=== PATIENT | male | born 1975 | race American Indian/Alaskan Native ===

== ENCOUNTER 2016-12-18 19:10 | Emergency (ER) | payer MEDICAID ==
[2016-12-18 19:10] VITALS: BMI 23.1
[2016-12-18 19:28] VITALS: BP 154/93; PULSE 69; RESP 16; TEMP 98.2; O2SAT 100
--- NOTE | 2016-12-18 20:22 | ED PDOC ---
HPI: Headache Time Seen by Provider: 12/18/16 19:55 Chief Complaint (Nursing): Headache Chief Complaint (Provider): Headache History Per: Patient History/Exam Limitations: no limitations Onset/Duration Of Symptoms: Mins (x5 minutes) Current Symptoms Are (Timing): Still Present Additional Complaint(s): 41 y/o male presents to the emergency department with a complaint of a headache x5 minutes. Reports experiencing similar headache in the past and treating with Tylenol. Denies any further medical complaints. Past Medical History Reviewed: Historical Data, Nursing Documentation, Vital Signs Vital Signs: Last Vital Signs Temp 98.2 F 12/18/16 19:26 Pulse 69 12/18/16 19:26 Resp 16 12/18/16 19:26 BP 154/93 H 12/18/16 19:26 Pulse Ox 100 12/18/16 19:26 - Medical History PMH: Bipolar Disorder (per old chart but pt denies), Diabetes Denies: Hepatitis, HIV, HTN, Chronic Kidney Disease, Seizures, Sexually Transmitted Disease - Surgical History Surgical History: Appendectomy - Family History Family History: States: Unknown Family Hx - Social History Current smoker - smoking cessation education provided: Yes (Light Smoker < 10 Cigarettes Daily) Alcohol: Social Drugs: Other (PCP/Heroin) - Immunization History Hx Tetanus Toxoid Vaccination: No Hx Influenza Vaccination: No Hx Pneumococcal Vaccination: No - Home Medications Home Medications: Ambulatory Orders Medication Instructions Recorded Ibuprofen [Motrin] 600 mg PO Q6 #20 tab 07/08/16 Ibuprofen [Motrin] 1 tab PO TID PRN #20 tab 07/21/16 - Allergies Allergies/Adverse Reactions: Allergies Allergy/AdvReac Type Severity Reaction Status Date / Time risperidone [From Risperdal] Allergy FATIGUE Verified 12/18/16 19:28 Review of Systems ROS Statement: Except As Marked, All Systems Reviewed And Found Negative Neurological: Negative for: Headache Physical Exam - Reviewed Nursing Documentation Reviewed: Yes Vital Signs Reviewed: Yes - Physical Exam Appears: Positive for: Well, Non-toxic, No Acute Distress Head Exam: Positive for: ATRAUMATIC, NORMAL INSPECTION, NORMOCEPHALIC Skin: Positive for: Normal Color, Warm, Dry Neck: Positive for: Normal, Supple Neurologic/Psych: Positive for: Alert, Oriented - ECG O2 Sat by Pulse Oximetry: 100 (RA) Pulse Ox Interpretation: Normal Medical Decision Making Medical Decision Making: Time: 19:55 Initial Impression: Headache Initial Plan: --Tylenol 650 mg PO --Reevaluation Time: 20:17 Upon provider reevaluation patient is feeling better, is medically stable, and requires no further treatment in the ED at this time. Patient will be discharged home. Counseling was provided and all questions were answered regarding diagnosis and need for follow up with referred clinics. There is agreement to discharge plan. Return if symptoms persist or worsen. Clinical Impression: Headache Scribe Attestation: Documented by Silvia Mckeon, acting as a scribe for Meg Collins. Provider Scribe Attestation: All medical record entries made by the Scribe were at my direction and personally dictated by me. I have reviewed the chart and agree that the record accurately reflects my personal performance of the history, physical exam, medical decision making, and the department course for this patient. I have also personally directed, reviewed, and agree with the discharge instructions and disposition. Disposition - Clinical Impression Clinical Impression: Headache - Patient ED Disposition Is Patient to be Admitted: No Counseled Patient/Family Regarding: Diagnosis, Need For Followup - Disposition Referrals: [facility] [Outside] Disposition: Routine/Home Disposition Time: 20:17 Condition: GOOD Instructions: Acute Headache (ED)
== END 2016-12-18 20:46 | disposition home or self-care (01) ==
LOC: H.ER 19:10
DX: R51 Headache (principal); E11.9 Type 2 diabetes mellitus without complications; F31.9 Bipolar disorder, unspecified

== ENCOUNTER 2016-12-25 13:56 | Emergency (ER) | payer MEDICAID ==
[2016-12-25 13:56] VITALS: BMI 23.7
[2016-12-25 14:02] VITALS: BP 145/78; PULSE 68; RESP 18; TEMP 98; O2SAT 99
--- NOTE | 2016-12-25 14:10 | ED PDOC ---
HPI: Headache Time Seen by Provider: 12/25/16 14:07 Chief Complaint (Nursing): Headache Chief Complaint (Provider): headache History Per: Patient (41 y/o male undomiciled here for treatment of mild left frontal headache noted while walking prior to ED arrival. States has h/o headaches in past lasting few minutes. Denies any vomiting/photophobia/fevers/ uri/cough. Patient does not have any access to medication for headache.) Past Medical History Reviewed: Historical Data, Nursing Documentation, Vital Signs Vital Signs: Last Vital Signs Temp 98 F 12/25/16 13:59 Pulse 68 12/25/16 13:59 Resp 18 12/25/16 13:59 BP 145/78 12/25/16 13:59 Pulse Ox 99 12/25/16 13:59 - Medical History PMH: Bipolar Disorder (per old chart but pt denies), Diabetes Denies: Hepatitis, HIV, HTN, Chronic Kidney Disease, Seizures, Sexually Transmitted Disease - Surgical History Surgical History: Appendectomy - Family History Family History: States: Unknown Family Hx - Immunization History Hx Tetanus Toxoid Vaccination: No Hx Influenza Vaccination: No Hx Pneumococcal Vaccination: No - Home Medications Home Medications: Ambulatory Orders Medication Instructions Recorded Ibuprofen [Motrin] 600 mg PO Q6 #20 tab 07/08/16 Ibuprofen [Motrin] 1 tab PO TID PRN #20 tab 07/21/16 Ibuprofen [Motrin Tab] 600 mg PO Q6 #20 tab 12/21/16 - Allergies Allergies/Adverse Reactions: Allergies Allergy/AdvReac Type Severity Reaction Status Date / Time risperidone [From Risperdal] Allergy FATIGUE Verified 12/18/16 19:28 Review of Systems ROS Statement: Except As Marked, All Systems Reviewed And Found Negative Physical Exam - Reviewed Nursing Documentation Reviewed: Yes Vital Signs Reviewed: Yes - Physical Exam Appears: Positive for: Well, Non-toxic, No Acute Distress Head Exam: Positive for: ATRAUMATIC, NORMAL INSPECTION, NORMOCEPHALIC Skin: Positive for: Normal Color, Warm, DRY Eye Exam: Positive for: EOMI, Normal appearance, PERRL ENT: Positive for: Normal ENT Inspection Neck: Positive for: Normal, Painless ROM Cardiovascular/Chest: Positive for: Regular Rate, Rhythm Respiratory: Positive for: CNT, Normal Breath Sounds Gastrointestinal/Abdominal: Positive for: Normal Exam, Bowel Sounds, Soft Back: Positive for: Normal Inspection Extremity: Positive for: Normal ROM Neurologic/Psych: Positive for: Alert, Oriented - ECG O2 Sat by Pulse Oximetry: 99 - Progress ED Course And Treament: Acetaminophen 650mg x 1 dose OLD ED records reviewed. Patient has many visits for back pain. Currently appears in no discomfort in ED. Disposition - Clinical Impression Clinical Impression: Headache - Patient ED Disposition Is Patient to be Admitted: No - Disposition Referrals: [facility] [Outside] Disposition: Routine/Home Disposition Time: 14:10 Condition: FAIR Instructions: Tension Headache (ED)
== END 2016-12-25 14:47 | disposition home or self-care (01) ==
LOC: H.ER 13:56
DX: R51 Headache (principal); E11.9 Type 2 diabetes mellitus without complications; F31.9 Bipolar disorder, unspecified

== ENCOUNTER 2017-04-19 10:58 | Emergency (ER) | payer MEDICAID ==
[2017-04-19 10:58] VITALS: BMI 23.7
--- NOTE | 2017-04-19 12:13 | ED PDOC ---
HPI: General Adult Time Seen by Provider: 04/19/17 11:18 Chief Complaint (Nursing): Medical Clearance Chief Complaint (Provider): medical eval History Per: Patient History/Exam Limitations: no limitations Additional Complaint(s): 42yo M in ED for eval of lesions to body-pt is homeless needs clearance for return. Pt with ?bed bug infestation. Past Medical History Reviewed: Historical Data, Nursing Documentation, Vital Signs Vital Signs: Last Vital Signs Temp 98 F 04/19/17 11:25 Pulse 88 04/19/17 11:25 Resp 16 04/19/17 11:25 BP 165/111 H 04/19/17 11:25 Pulse Ox 98 04/19/17 11:25 - Medical History PMH: Bipolar Disorder (per old chart but pt denies), Diabetes Denies: Hepatitis, HIV, HTN, Chronic Kidney Disease, Seizures, Sexually Transmitted Disease - Surgical History Surgical History: Appendectomy - Family History Family History: States: Unknown Family Hx - Immunization History Hx Tetanus Toxoid Vaccination: No Hx Influenza Vaccination: No Hx Pneumococcal Vaccination: No - Home Medications Home Medications: Ambulatory Orders Medication Instructions Recorded Ibuprofen [Motrin] 600 mg PO Q6 #20 tab 07/08/16 Ibuprofen [Motrin] 1 tab PO TID PRN #20 tab 07/21/16 Ibuprofen [Motrin Tab] 600 mg PO Q6 #20 tab 12/21/16 - Allergies Allergies/Adverse Reactions: Allergies Allergy/AdvReac Type Severity Reaction Status Date / Time risperidone [From Risperdal] Allergy FATIGUE Verified 12/18/16 19:28 - ECG O2 Sat by Pulse Oximetry: 98 Disposition - Disposition
--- NOTE | 2017-04-19 12:17 | ED PDOC ---
HPI: General Adult Time Seen by Provider: 04/19/17 11:18 Chief Complaint (Nursing): Medical Clearance Chief Complaint (Provider): medical eval History Per: Patient History/Exam Limitations: no limitations Additional Complaint(s): 42yo M inEd for eval of ? bed bug infestation.needs clearance for return to homeless alf. no fever no chills no nausea or vomiting. denies abd pain. , Past Medical History Reviewed: Historical Data, Nursing Documentation, Vital Signs Vital Signs: Last Vital Signs Temp 98 F 04/19/17 11:25 Pulse 88 04/19/17 11:25 Resp 16 04/19/17 11:25 BP 165/111 H 04/19/17 11:25 Pulse Ox 98 04/19/17 12:26 - Medical History PMH: Bipolar Disorder (per old chart but pt denies), Diabetes Denies: Hepatitis, HIV, HTN, Chronic Kidney Disease, Seizures, Sexually Transmitted Disease - Surgical History Surgical History: Appendectomy - Family History Family History: States: Unknown Family Hx - Immunization History Hx Tetanus Toxoid Vaccination: No Hx Influenza Vaccination: No Hx Pneumococcal Vaccination: No - Home Medications Home Medications: Ambulatory Orders Medication Instructions Recorded Ibuprofen [Motrin] 600 mg PO Q6 #20 tab 07/08/16 Ibuprofen [Motrin] 1 tab PO TID PRN #20 tab 07/21/16 Ibuprofen [Motrin Tab] 600 mg PO Q6 #20 tab 12/21/16 - Allergies Allergies/Adverse Reactions: Allergies Allergy/AdvReac Type Severity Reaction Status Date / Time risperidone [From Risperdal] Allergy FATIGUE Verified 12/18/16 19:28 Review of Systems ROS Statement: Except As Marked, All Systems Reviewed And Found Negative Skin: Positive for: Rash, Lesions Physical Exam - Reviewed Nursing Documentation Reviewed: Yes Vital Signs Reviewed: Yes - Physical Exam Appears: Positive for: Well, Non-toxic, No Acute Distress Head Exam: Positive for: ATRAUMATIC, NORMAL INSPECTION, NORMOCEPHALIC Skin: Positive for: Rash (lesions noted diffuse on body some lesions noted on palm of hands. none noted on soles of feet. lesions noted to groin area as well. no sore noted to penis. no swelling noted. lesions are excoriate and hyperpigmented lesions. ) Eye Exam: Positive for: EOMI, Normal appearance, PERRL ENT: Positive for: Normal ENT Inspection Neck: Positive for: Normal, Painless ROM Cardiovascular/Chest: Positive for: Regular Rate, Rhythm Respiratory: Positive for: CNT, Normal Breath Sounds Gastrointestinal/Abdominal: Positive for: Normal Exam, Bowel Sounds, Soft Back: Positive for: Normal Inspection Extremity: Positive for: Normal ROM Neurologic/Psych: Positive for: Alert, Oriented - ECG O2 Sat by Pulse Oximetry: 98 - Progress ED Course And Treament: pt was placed in decontamination and cleaned. provided clothing. concerns for syphilis. will test RPR but pt does admit he is sexually active men /women and without condom use. will treat with PCN, empirically considering SHx. Orders Category Date Time Status CHLAMYDIA/GC RNA,TMA Stat Lab 04/19/17 12:11 Uncollected Penicillin G Benzathine [Bicillin L-A inj] Med 04/19/17 12:24 Stat 2,400,000 units IM STAT STA Vital Signs ONCE Pt Care 04/19/17 12:14 Ordered RAPID PLASMA REAGIN Stat Serology 04/19/17 12:11 Uncollected Medical Decision Making Medical Decision Making: pt will be discharged Disposition - Clinical Impression Clinical Impression: Infestation by bed bug - Patient ED Disposition Is Patient to be Admitted: No Counseled Patient/Family Regarding: Need For Followup - Disposition Disposition: Routine/Home Disposition Time: 13:28 Condition: STABLE Instructions: Bed Bugs (ED) Forms: [employer] (Cook Islander)
[2017-04-19] MEDS ORDERED: Penicillin G Benzathine 2.4 Mill Unit/4 ml Syr IM STA (12:24)
[2017-04-19 13:40] VITALS: BP 151/98; PULSE 86; RESP 14; TEMP 98.1; O2SAT 99
== END 2017-04-19 15:26 | disposition home or self-care (01) ==
LOC: H.ER 10:58
DX: B88.8 Other specified infestations (principal); E11.9 Type 2 diabetes mellitus without complications; F31.9 Bipolar disorder, unspecified
CPT/HCPCS: 86592; 96372; 99281; J0561

== ENCOUNTER 2017-05-05 13:44 | Emergency (ER) | payer MEDICAID ==
[2017-05-05 13:45] VITALS: BMI 23.7
[2017-05-05 13:59] VITALS: PULSE 82; RESP 20; TEMP 98.3; O2SAT 98
--- NOTE | 2017-05-05 14:35 | ED PDOC ---
HPI: Headache Time Seen by Provider: 05/05/17 14:07 Chief Complaint (Nursing): Headache Chief Complaint (Provider): headache History Per: Patient History/Exam Limitations: no limitations Onset/Duration Of Symptoms: Mins (15 minutes ago), Sudden Onset Current Symptoms Are (Timing): Still Present Severity: Mild Quality: "Pain" Associated Symptoms: denies: Photophobia, Blurred Vision, Nausea, Vomiting, Extremity Weakness Additional Complaint(s): Similar to previous episodes Denies fever or chills. Denies blurry vision or weakness. Denies trauma. Reports runny nose and feels like he's coming down with a cold. Pt seen in this ER previously for same. He is homeless. Denies drug or alcohol use. Past Medical History Reviewed: Historical Data, Nursing Documentation, Vital Signs Vital Signs: Last Vital Signs Temp 98.3 F 05/05/17 13:57 Pulse 82 05/05/17 13:57 Resp 20 05/05/17 13:57 BP 164/94 H 05/05/17 13:57 Pulse Ox 98 05/05/17 13:57 - Medical History PMH: Bipolar Disorder (per old chart but pt denies), Diabetes Denies: Hepatitis, HIV, HTN, Chronic Kidney Disease, Seizures, Sexually Transmitted Disease - Surgical History Surgical History: Appendectomy - Family History Family History: States: Unknown Family Hx - Social History Current smoker - smoking cessation education provided: Yes - Immunization History Hx Tetanus Toxoid Vaccination: No Hx Influenza Vaccination: No Hx Pneumococcal Vaccination: No - Home Medications Home Medications: Ambulatory Orders Medication Instructions Recorded Ibuprofen [Motrin] 600 mg PO Q6 #20 tab 07/08/16 Ibuprofen [Motrin] 1 tab PO TID PRN #20 tab 07/21/16 Ibuprofen [Motrin Tab] 600 mg PO Q6 #20 tab 12/21/16 - Allergies Allergies/Adverse Reactions: Allergies Allergy/AdvReac Type Severity Reaction Status Date / Time risperidone [From Risperdal] Allergy FATIGUE Verified 05/05/17 13:57 Review of Systems ROS Statement: Except As Marked, All Systems Reviewed And Found Negative (and as per HPI) Constitutional: Negative for: Fever, Chills, Weakness, Malaise ENT: Positive for: Nose Discharge Musculoskeletal: Negative for: Neck Pain Neurological: Positive for: Headache, Dizziness. Negative for: Weakness, Numbness, Altered Mental Status Physical Exam - Reviewed Nursing Documentation Reviewed: Yes Vital Signs Reviewed: Yes - Physical Exam Appears: Positive for: Well, Non-toxic, No Acute Distress Head Exam: Positive for: ATRAUMATIC, NORMOCEPHALIC Skin: Positive for: Warm, Dry Eye Exam: Positive for: EOMI, PERRL ENT: Negative for: Pharyngeal Erythema, Tonsillar Exudate Neck: Positive for: Painless ROM, Supple Cardiovascular/Chest: Positive for: Regular Rate, Rhythm, Chest Non Tender. Negative for: Murmur Respiratory: Positive for: Normal Breath Sounds. Negative for: Wheezing Gastrointestinal/Abdominal: Positive for: Soft. Negative for: Tenderness Back: Positive for: Normal Inspection. Negative for: Decreased ROM Extremity: Positive for: Normal ROM. Negative for: Deformity Lymphatic: Negative for: Adenopathy Neurologic/Psych: Positive for: Alert, suction plate carrier cleaner II-XII (intact), Mood/Affect (flat), Gait (steady). Negative for: Motor/Sensory Deficits - ECG O2 Sat by Pulse Oximetry: 98 Disposition - Clinical Impression Clinical Impression: Homeless, Headache Counseled Patient/Family Regarding: Studies Performed, Diagnosis, Need For Followup - Disposition Referrals: [facility] [Outside] - 05/07/17 Disposition: Routine/Home Disposition Time: 14:00 Condition: GOOD Instructions: Acute Headache (ED)
[2017-05-05 14:48] VITALS: BP 150/76
== END 2017-05-05 14:47 | disposition home or self-care (01) ==
LOC: H.ER 13:44
DX: R51 Headache (principal)

== ENCOUNTER 2017-06-12 20:05 | Emergency (ER) | payer MEDICAID ==
[2017-06-12 20:05] VITALS: BMI 23.7
[2017-06-12 21:15] VITALS: BP 187/91; PULSE 94; RESP 16; TEMP 98.2; O2SAT 98
--- NOTE | 2017-06-12 21:40 | ED PDOC ---
HPI: Back Time Seen by Provider: 06/12/17 21:28 Chief Complaint (Nursing): Back Pain Chief Complaint (Provider): Back Pain History Per: Patient History/Exam Limitations: no limitations Onset/Duration Of Symptoms: Days (x1) Current Symptoms Are (Timing): Still Present Additional Complaint(s): 42 y/o male presents to the ER complaining of lower back pain since this afternoon. He denies having similar pain in the past. There was no injury or fall. Pain is localized to the left lower back. Denies any numbness, tingling, weakness, incontinence, or dysuria. PMD: None Past Medical History Reviewed: Historical Data, Nursing Documentation, Vital Signs Vital Signs: Last Vital Signs Temp 98.2 F 06/12/17 21:12 Pulse 94 H 06/12/17 21:12 Resp 16 06/12/17 21:12 BP 187/91 H 06/12/17 21:12 Pulse Ox 98 06/12/17 21:12 - Medical History PMH: Bipolar Disorder (per old chart but pt denies), Diabetes Denies: Hepatitis, HIV, HTN, Chronic Kidney Disease, Seizures, Sexually Transmitted Disease - Surgical History Surgical History: Appendectomy - Family History Family History: States: Unknown Family Hx - Immunization History Hx Tetanus Toxoid Vaccination: No Hx Influenza Vaccination: No Hx Pneumococcal Vaccination: No - Home Medications Home Medications: Ambulatory Orders Medication Instructions Recorded Ibuprofen [Motrin] 600 mg PO Q6 #20 tab 07/08/16 Ibuprofen [Motrin] 1 tab PO TID PRN #20 tab 07/21/16 Ibuprofen [Motrin Tab] 600 mg PO Q6 #20 tab 12/21/16 Naproxen [Naprosyn] 500 mg PO Q12 PRN #14 tablet 06/12/17 - Allergies Allergies/Adverse Reactions: Allergies Allergy/AdvReac Type Severity Reaction Status Date / Time risperidone [From Risperdal] Allergy FATIGUE Verified 06/12/17 21:11 Review of Systems ROS Statement: Except As Marked, All Systems Reviewed And Found Negative Genitourinary Male: Negative for: Dysuria, Incontinence Musculoskeletal: Positive for: Back Pain (left lower) Neurological: Negative for: Weakness, Numbness (and tingling) Physical Exam - Reviewed Nursing Documentation Reviewed: Yes Vital Signs Reviewed: Yes - Physical Exam Appears: Positive for: Non-toxic, No Acute Distress Head Exam: Positive for: ATRAUMATIC, NORMOCEPHALIC Skin: Positive for: Normal Color, Warm, Dry. Negative for: Rash Eye Exam: Positive for: EOMI, Normal appearance, PERRL Neck: Positive for: Normal, Painless ROM Cardiovascular/Chest: Positive for: Regular Rate, Rhythm. Negative for: Murmur Respiratory: Positive for: Normal Breath Sounds. Negative for: Accessory Muscle Use, Respiratory Distress Back: Positive for: Other (Left paralumbar tenderness). Negative for: Vertebral Tenderness Extremity: Positive for: Normal ROM. Negative for: Pedal Edema, Deformity Neurologic/Psych: Positive for: Alert, Oriented - ECG O2 Sat by Pulse Oximetry: 98 (RA) Pulse Ox Interpretation: Normal Medical Decision Making Medical Decision Making: Time: 21:39 Initial Impression: Back pain Initial Plan: * Motrin 600 mg PO Patient is medically stable for discharge home. Scribe Attestation: Documented by Ana Rebollar, acting as a scribe for Gretel Peng PA-C Provider Scribe Attestation: All medical record entries made by the Scribe were at my direction and personally dictated by me. I have reviewed the chart and agree that the record accurately reflects my personal performance of the history, physical exam, medical decision making, and the department course for this patient. I have also personally directed, reviewed, and agree with the discharge instructions and disposition. Disposition - Clinical Impression Clinical Impression: Low back pain - Patient ED Disposition Is Patient to be Admitted: No - Disposition Referrals: [facility] [Outside] Disposition: Routine/Home Disposition Time: 21:39 Condition: FAIR Prescriptions: Naproxen [Naprosyn] 500 mg PO Q12 PRN #14 tablet PRN Reason: Pain, Moderate (4-7) Instructions: Acute Low Back Pain (DC) Forms: [employer] (Thai)
== END 2017-06-12 22:04 | disposition home or self-care (01) ==
LOC: H.ER 20:05
DX: M54.5 Low back pain (principal); E11.9 Type 2 diabetes mellitus without complications; F31.9 Bipolar disorder, unspecified

== ENCOUNTER 2017-07-27 17:10 | Emergency (ER) | payer MEDICAID ==
[2017-07-27 18:18] VITALS: RESP 16
[2017-07-27 18:41] VITALS: BMI 25.7
--- NOTE | 2017-07-27 18:47 | ED PDOC ---
HPI: Back Time Seen by Provider: 07/27/17 18:36 Chief Complaint (Provider): back pain History Per: Patient History/Exam Limitations: no limitations Onset/Duration Of Symptoms: Days (today) Additional Complaint(s): Back pain across lower. No numbness, tingles, weakness, dizziness, incontinence , constipation. No new fall or injury. No abd pain. Denies suicidal or homicidal ideation. No neck pain. Denies drugs or etoh. Found to be full of bugs (lice) when pt. signed in. Past Medical History Reviewed: Nursing Documentation, Vital Signs Vital Signs: Last Vital Signs Temp 97.0 F L 07/27/17 18:17 Pulse 92 H 07/27/17 18:17 Resp 16 07/27/17 18:17 BP 170/98 H 07/27/17 18:17 Pulse Ox 100 07/27/17 18:17 - Medical History PMH: Back Problems, Bipolar Disorder (per old chart but pt denies), Diabetes Denies: Hepatitis, HIV, HTN, Chronic Kidney Disease, Seizures, Sexually Transmitted Disease - Surgical History Surgical History: Appendectomy - Family History Family History: States: Unknown Family Hx - Immunization History Hx Tetanus Toxoid Vaccination: No Hx Influenza Vaccination: No Hx Pneumococcal Vaccination: No - Home Medications Home Medications: Ambulatory Orders Medication Instructions Recorded Unobtainable 07/04/17 - Allergies Allergies/Adverse Reactions: Allergies Allergy/AdvReac Type Severity Reaction Status Date / Time risperidone [From Risperdal] Allergy FATIGUE Verified 07/04/17 11:48 Review of Systems ROS Statement: Except As Marked, All Systems Reviewed And Found Negative Musculoskeletal: Positive for: Back Pain Physical Exam - Reviewed Nursing Documentation Reviewed: Yes Vital Signs Reviewed: Yes - Physical Exam Appears: Positive for: Non-toxic, No Acute Distress Head Exam: Positive for: ATRAUMATIC, NORMAL INSPECTION, NORMOCEPHALIC Skin: Positive for: Normal Color, Warm, DRY Eye Exam: Positive for: EOMI, Normal appearance, PERRL ENT: Positive for: Normal ENT Inspection Neck: Positive for: Normal, Painless ROM Cardiovascular/Chest: Positive for: Regular Rate, Rhythm Respiratory: Positive for: CNT, Normal Breath Sounds Gastrointestinal/Abdominal: Positive for: Normal Exam, Bowel Sounds, Soft. Negative for: Tenderness Back: Negative for: L CVA Tenderness, R CVA Tenderness Extremity: Positive for: Normal ROM. Negative for: Tenderness, Pedal Edema Neurologic/Psych: Positive for: Alert, Oriented. Negative for: Motor/Sensory Deficits - ECG O2 Sat by Pulse Oximetry: 100 - Progress ED Course And Treament: 1850: Pt. with visits for back pain and psych. Pt. not good historian. Complains of back pain and wants to talk to someone about his problems. Has psych hx. Dr. Gatica to take over care. Disposition - Clinical Impression Clinical Impression: Back pain - Patient ED Disposition Is Patient to be Admitted: Transfer of Care - Disposition Disposition: Transfer of Care Disposition Time: 18:49 Condition: FAIR
--- NOTE | 2017-07-27 19:11 | ED PDOC ---
- Laboratory Results Result Diagrams: 07/27/17 20:18 07/27/17 20:18 - ECG O2 Sat by Pulse Oximetry: 100 (RA) Pulse Ox Interpretation: Normal Medical Decision Making Medical Decision Making: Time: 19:00 --transfer of care endorsed to me pending labs and crisis evaluation. Scribe Attestation: Documented by Jennifer Obrien, acting as a scribe for Butch Gatica MD. Provider Scribe Attestation: All medical record entries made by the Scribe were at my direction and personally dictated by me. I have reviewed the chart and agree that the record accurately reflects my personal performance of the history, physical exam, medical decision making, and the department course for this patient. I have also personally directed, reviewed, and agree with the discharge instructions and disposition. Disposition Doctor Will See Patient In The: Office Counseled Patient/Family Regarding: Studies Performed, Diagnosis, Need For Followup - Clinical Impression Clinical Impression: Back pain, Anemia - POA Present On Arrival: None - Disposition Referrals: [facility] [Outside] Disposition: Routine/Home Disposition Time: 23:00 Condition: IMPROVED Instructions: Chronic Back Pain (ED)
[2017-07-27 20:15] VITALS: BP 140/78; PULSE 80; TEMP 97.6
[2017-07-27 20:29] LABS: BASO % 0.8 % (0.0-2.0); EOS # 0.6 K/uL (0.0-0.7); EOS % 13.6 % (0.0-4.0); HEMOGLOBIN 8.7 g/dL (12.0-18.0); LYMPH # 1.6 K/uL (1.0-4.3); LYMPH % 34.2 % (20.0-40.0); MEAN CELL VOLUME 65.1 fl (80.0-94.0); MEAN CORPUSCULAR HEMOGLOBIN 20.3 pg (27.0-31.0); MEAN CORPUSCULAR HGB CONC 31.2 g/dL (33.0-37.0); MONO # 0.6 K/uL (0.0-0.8); MONO % 13.7 % (0.0-10.0); NEUT # 1.8 K/uL (1.8-7.0); NEUT % 37.7 % (50.0-75.0); NRBC % 0.1 % (0.0-0.0); RBC 4.27 Mil/uL (4.40-5.90); RED CELL DISTRIBUTION WIDTH 19.8 % (11.5-14.5); WHITE BLOOD COUNT 4.6 K/uL (4.8-10.8)
[2017-07-27 20:34] LABS: ALB/GLOB RATIO 0.9 (1.0-2.1); ALBUMIN 3.8 g/dL (3.5-5.0); ALT/SGPT 32 U/L (21-72); AST/SGOT 27 U/L (17-59); BLOOD UREA NITROGEN 16 mg/dl (9-20); CALCIUM 9.3 mg/dL (8.4-10.2); GFR AFRICAN-AMERICAN > 60; GFR NON-AFRICAN AMERICAN > 60
[2017-07-28 01:01] VITALS: O2SAT 100
== END 2017-07-28 00:18 | disposition home or self-care (01) ==
LOC: H.ER 17:10
DX: M54.9 Dorsalgia, unspecified (principal); D64.9 Anemia, unspecified; E11.9 Type 2 diabetes mellitus without complications; F31.9 Bipolar disorder, unspecified

== ENCOUNTER 2017-08-03 14:07 | Emergency (ER) | payer MEDICAID ==
[2017-08-03 14:08] VITALS: BMI 25.7
[2017-08-03 15:44] VITALS: BP 159/92; PULSE 87; RESP 20; TEMP 98.8; O2SAT 100
--- NOTE | 2017-08-03 15:48 | ED PDOC ---
HPI: Headache Time Seen by Provider: 08/03/17 14:49 Chief Complaint (Nursing): Headache Chief Complaint (Provider): Headache History Per: Patient History/Exam Limitations: no limitations Onset/Duration Of Symptoms: Days (x1), Gradual Current Symptoms Are (Timing): Still Present Additional Complaint(s): 42 year old male who presents to the emergency department with a complaint of gradual onset of headache ongoing since this morning. Denied any fever, chills, nausea, vomiting, head trauma, loss of consciousness, visual changes or taking any medication for pain. Patient reported having a history of headaches for "35 years" and has been evaluated by doctors without imaging performed but advised to take Tylenol and Motrin for symptoms. PMD: none provided Past Medical History Reviewed: Historical Data, Nursing Documentation, Vital Signs Vital Signs: Last Vital Signs Temp 98.8 F 08/03/17 15:42 Pulse 87 08/03/17 15:42 Resp 20 08/03/17 15:42 BP 159/92 H 08/03/17 15:42 Pulse Ox 100 08/03/17 15:42 - Medical History PMH: Back Problems, Bipolar Disorder (per old chart but pt denies) Denies: Diabetes, Hepatitis, HIV, HTN, Chronic Kidney Disease, Seizures, Sexually Transmitted Disease - Surgical History Surgical History: Appendectomy - Family History Family History: States: Unknown Family Hx - Social History Current smoker - smoking cessation education provided: Yes Alcohol: > 2 Drinks/Day Drugs: Other (PCP/heroin) - Immunization History Hx Tetanus Toxoid Vaccination: No Hx Influenza Vaccination: No Hx Pneumococcal Vaccination: No - Home Medications Home Medications: Ambulatory Orders Medication Instructions Recorded Naproxen [Naprosyn] 500 mg PO BID PRN #10 tab 08/03/17 - Allergies Allergies/Adverse Reactions: Allergies Allergy/AdvReac Type Severity Reaction Status Date / Time risperidone [From Risperdal] Allergy FATIGUE Verified 07/04/17 11:48 Review of Systems ROS Statement: Except As Marked, All Systems Reviewed And Found Negative Constitutional: Negative for: Fever Eyes: Negative for: Vision Change Gastrointestinal: Negative for: Nausea, Vomiting Neurological: Positive for: Headache. Negative for: Other (LOC or trauma) Physical Exam - Reviewed Nursing Documentation Reviewed: Yes Vital Signs Reviewed: Yes - Physical Exam Appears: Positive for: Well, Non-toxic, No Acute Distress Head Exam: Positive for: ATRAUMATIC, NORMAL INSPECTION, NORMOCEPHALIC Eye Exam: Positive for: Normal appearance. Negative for: Periorbital swelling, Periorbital tenderness ENT: Positive for: Normal ENT Inspection, Pharynx Is (within normal limits). Negative for: Pharyngeal Erythema Cardiovascular/Chest: Positive for: Regular Rate, Rhythm, Chest Non Tender Respiratory: Positive for: Normal Breath Sounds. Negative for: Decreased Breath Sounds, Respiratory Distress Neurologic/Psych: Positive for: Alert (x3), Oriented - ECG O2 Sat by Pulse Oximetry: 100 (RA) Pulse Ox Interpretation: Normal Medical Decision Making Medical Decision Making: Initial Impression: Headache Initial Plan: * Naproxen 500mg PO Time: 1615 --Upon provider evaluation, patient is medically stable and requires no further treatment in the ED at this time. Patient will be discharged home with Rx for Naprosyn 500mg. Counseling was provided and all questions were answered regarding diagnosis and need for follow up with [facility]. There is agreement to discharge plan. Return if symptoms persist or worsen. Clinical Impression: Acute headache Scribe Attestation: Documented by Radha Carpio, acting as a scribe for Mauri Richard PA-C. Provider Scribe Attestation: All medical record entries made by the Scribe were at my direction and personally dictated by me. I have reviewed the chart and agree that the record accurately reflects my personal performance of the history, physical exam, medical decision making, and the department course for this patient. I have also personally directed, reviewed, and agree with the discharge instructions and disposition. Disposition - Clinical Impression Clinical Impression: Acute headache - Patient ED Disposition Is Patient to be Admitted: No Counseled Patient/Family Regarding: Diagnosis - Disposition Referrals: [facility] [Outside] Disposition: Routine/Home Disposition Time: 16:15 Condition: STABLE Prescriptions: Naproxen [Naprosyn] 500 mg PO BID PRN #10 tab PRN Reason: Pain Instructions: Acute Headache (ED) Forms: [employer] (Japanese) Print Language: CYPRIOT
[2017-08-03] MEDS ORDERED: Naproxen 500 MG TAB PO ONE ×2 (16:08→16:14)
== END 2017-08-03 17:08 | disposition home or self-care (01) ==
LOC: H.ER 14:07
DX: R51 Headache (principal); F31.9 Bipolar disorder, unspecified

== ENCOUNTER 2017-09-12 19:54 | Emergency (ER) | payer MEDICAID ==
[2017-09-12 19:54] VITALS: BMI 25.7
[2017-09-12 20:06] VITALS: O2SAT 99
[2017-09-12] MEDS ORDERED: Naproxen 500 MG TAB PO ONE ×2 (20:19→20:46)
--- NOTE | 2017-09-12 20:22 | ED PDOC ---
HPI: Back Time Seen by Provider: 09/12/17 20:13 Chief Complaint (Nursing): Back Pain Chief Complaint (Provider): back pain History Per: Patient History/Exam Limitations: no limitations Onset/Duration Of Symptoms: Mins Current Symptoms Are (Timing): Still Present Previous Symptoms: Back Pain Exacerbating Factor(s): Turning, Movement Additional Complaint(s): 42 y/o male history of hypertension (noncompliant) presents with acute on chronic low back pain x 10 minutes. Patient states he [facility] walking [facility] when pain started; states pain similar to previous episodes of back pain, multiple visits for same. Denies headache, dizziness, nausea/ vomiting, chest pain, shortness of breath, palpitations, abdominal pain, urinary symptoms, numbness/weakness of extremities. Past Medical History Reviewed: Historical Data, Nursing Documentation, Vital Signs Vital Signs: Last Vital Signs Temp 98.4 F 09/12/17 20:03 Pulse 87 09/12/17 20:03 Resp 16 09/12/17 20:03 BP 192/128 H 09/12/17 20:03 Pulse Ox 99 09/12/17 20:03 - Medical History PMH: Back Problems, Bipolar Disorder (per old chart but pt denies), HTN ( noncompliant) Denies: Diabetes, Hepatitis, HIV, Chronic Kidney Disease, Seizures, Sexually Transmitted Disease - Surgical History Surgical History: Appendectomy - Family History Family History: States: Unknown Family Hx - Immunization History Hx Tetanus Toxoid Vaccination: No Hx Influenza Vaccination: No Hx Pneumococcal Vaccination: No - Home Medications Home Medications: Ambulatory Orders Medication Instructions Recorded Naproxen [Naprosyn] 500 mg PO BID PRN #10 tab 08/03/17 Naproxen [Naprosyn] 500 mg PO Q12 PRN #20 tablet 09/12/17 amLODIPine [Norvasc] 5 mg PO DAILY #10 tab 09/12/17 - Allergies Allergies/Adverse Reactions: Allergies Allergy/AdvReac Type Severity Reaction Status Date / Time risperidone [From Risperdal] Allergy FATIGUE Verified 09/12/17 20:03 Review of Systems ROS Statement: Except As Marked, All Systems Reviewed And Found Negative Musculoskeletal: Positive for: Back Pain Physical Exam - Reviewed Nursing Documentation Reviewed: Yes Vital Signs Reviewed: Yes - Physical Exam Appears: Positive for: Well, Non-toxic, No Acute Distress Head Exam: Positive for: ATRAUMATIC, NORMAL INSPECTION, NORMOCEPHALIC Skin: Positive for: Normal Color Eye Exam: Positive for: Normal appearance ENT: Positive for: Normal ENT Inspection Cardiovascular/Chest: Positive for: Regular Rate, Rhythm Respiratory: Positive for: Normal Breath Sounds Gastrointestinal/Abdominal: Positive for: Normal Exam Back: Positive for: Normal Inspection Extremity: Positive for: Normal ROM Neurologic/Psych: Positive for: Alert, Oriented. Negative for: Motor/Sensory Deficits - ECG ECG: Positive for: Viewed By Me (reviewed by ED attending) ECG Rhythm: Positive for: Sinus Rhythm O2 Sat by Pulse Oximetry: 99 Pulse Ox Interpretation: Normal - Progress ED Course And Treament: Clonidine PO ordered for elevated BP. Naproxen PO ordered for back pain Patient found to have body lice; sent to decon shower with Permethrin. Patient educated on findings, discharged with rx Naproxen, Norvasc. Advised to follow up PMD 2-3 days. Return precautions given. Disposition - Clinical Impression Clinical Impression: Hypertension, Body lice, Back pain, chronic - Patient ED Disposition Is Patient to be Admitted: No Counseled Patient/Family Regarding: Studies Performed, Diagnosis, Need For Followup, Rx Given - Disposition Referrals: [facility] [Outside] Disposition: Routine/Home Disposition Time: 22:00 Condition: IMPROVED Prescriptions: amLODIPine [Norvasc] 5 mg PO DAILY #10 tab Naproxen [Naprosyn] 500 mg PO Q12 PRN #20 tablet PRN Reason: Pain, Moderate (4-7) Instructions: Low Back Pain in Adults, Lice, High Blood Pressure in Adults
[2017-09-12] MEDS ORDERED: Permethrin 5% CREAM TOP ONE (20:59)
[2017-09-12 21:34] VITALS: BP 147/94; PULSE 77; RESP 17; TEMP 98
--- NOTE | 2017-09-13 08:57 | CARD ---
APPROVED REPORT EKG Measurement Heart [id number] <Conclusion> Normal sinus rhythm Incomplete right bundle branch block Borderline ECG
== END 2017-09-12 22:10 | disposition home or self-care (01) ==
LOC: H.ER 19:54
DX: I10 Essential (primary) hypertension (principal); B85.1 Pediculosis due to Pediculus humanus corporis; G89.29 Other chronic pain; M54.5 Low back pain

== ENCOUNTER 2017-10-27 19:57 | Emergency (ER) | payer MEDICAID ==
[2017-10-27 19:57] VITALS: BMI 25.7
[2017-10-27 20:20] VITALS: BP 142/91; PULSE 76; RESP 18; TEMP 98.6; O2SAT 98
--- NOTE | 2017-10-27 20:38 | ED PDOC ---
Lower Extremity Pain/Injury Time Seen by Provider: 10/27/17 20:22 Chief Complaint (Nursing): Lower Extremity Problem/Injury Chief Complaint (Provider): Back pain, leg discomfort History Per: Patient History/Exam Limitations: no limitations Onset/Duration Of Symptoms: Days Current Symptoms Are (Timing): Still Present Additional Complaint(s): 42 yo male states it is difficult for him to walk place to place. Pt states this is not new and has been going on for a long time. Pt also reports chronic low back pain. Past Medical History Reviewed: Historical Data, Nursing Documentation, Vital Signs Vital Signs: Last Vital Signs Temp 98.6 F 10/27/17 20:18 Pulse 76 10/27/17 20:18 Resp 18 10/27/17 20:18 BP 142/91 H 10/27/17 20:18 Pulse Ox 98 10/27/17 20:18 - Medical History PMH: Back Problems, Bipolar Disorder (per old chart but pt denies), HTN ( noncompliant) Denies: Diabetes, Hepatitis, HIV, Chronic Kidney Disease, Seizures, Sexually Transmitted Disease - Surgical History Surgical History: Appendectomy - Family History Family History: States: Unknown Family Hx - Living Arrangements Living Arrangements: With Family - Social History Current smoker - smoking cessation education provided: No Alcohol: None Drugs: Denies - Immunization History Hx Tetanus Toxoid Vaccination: No Hx Influenza Vaccination: No Hx Pneumococcal Vaccination: No - Home Medications Home Medications: Ambulatory Orders Medication Instructions Recorded Cyclobenzaprine [Flexeril] 5 mg PO TID PRN #20 tab 10/20/17 Ibuprofen [Motrin] 600 mg PO Q6 PRN #30 tab 10/20/17 Permethrin 1% [Permethrin 1% 1 ea EXT ONCE 1 Days bottle 10/20/17 Lotion] - Allergies Allergies/Adverse Reactions: Allergies Allergy/AdvReac Type Severity Reaction Status Date / Time No Known Allergies Allergy Verified 10/27/17 20:18 - ECG O2 Sat by Pulse Oximetry: 98 (RA) Pulse Ox Interpretation: Normal Disposition - Clinical Impression Clinical Impression: Chronic pain - Patient ED Disposition Is Patient to be Admitted: No Counseled Patient/Family Regarding: Diagnosis, Need For Followup - Disposition Disposition: Routine/Home Disposition Time: 20:43 Condition: GOOD Instructions: Chronic Pain Forms: [employer] (Nepali)
== END 2017-10-27 20:47 | disposition home or self-care (01) ==
LOC: H.ER 19:57
DX: G89.29 Other chronic pain (principal); F31.9 Bipolar disorder, unspecified; I10 Essential (primary) hypertension

== ENCOUNTER 2017-11-04 20:15 | Emergency (ER) | payer MEDICAID ==
[2017-11-04 20:16] VITALS: BMI 25.7
[2017-11-04 20:42] VITALS: TEMP 97.9
--- NOTE | 2017-11-04 21:10 | ED PDOC ---
Upper Extremity Pain/Injury Time Seen by Provider: 11/04/17 20:44 Chief Complaint (Nursing): Lower Extremity Problem/Injury Chief Complaint (Provider): Right hand pain History Per: Patient History/Exam Limitations: no limitations Onset/Duration Of Symptoms: Mins (prior to arrival) Current Symptoms Are (Timing): Still Present Additional Complaint(s): 42 year old male presents to the emergency department complaining of right hand pain, onset prior to arrival, contrary to the triage note. He denies trauma, numbness, tingling, radiating pain, fever, and weakness. PMD: none provided Past Medical History Reviewed: Historical Data, Nursing Documentation, Vital Signs Vital Signs: Last Vital Signs Temp 97.9 F 11/04/17 20:40 Pulse 76 11/04/17 20:40 Resp 16 11/04/17 20:40 BP 174/103 H 11/04/17 20:40 Pulse Ox 96 11/04/17 20:40 - Medical History PMH: Back Problems, Bipolar Disorder (per old chart but pt denies), HTN ( noncompliant) Denies: Diabetes, Hepatitis, HIV, Chronic Kidney Disease, Seizures, Sexually Transmitted Disease - Surgical History Surgical History: Appendectomy - Family History Family History: States: Unknown Family Hx - Social History Current smoker - smoking cessation education provided: Yes (some days) Drugs: Other (PCP/Heroin) - Immunization History Hx Tetanus Toxoid Vaccination: No Hx Influenza Vaccination: No Hx Pneumococcal Vaccination: No - Home Medications Home Medications: Ambulatory Orders Medication Instructions Recorded Cyclobenzaprine [Flexeril] 5 mg PO TID PRN #20 tab 10/20/17 Ibuprofen [Motrin] 600 mg PO Q6 PRN #30 tab 10/20/17 Permethrin 1% [Permethrin 1% 1 ea EXT ONCE 1 Days bottle 10/20/17 Lotion] - Allergies Allergies/Adverse Reactions: Allergies Allergy/AdvReac Type Severity Reaction Status Date / Time No Known Allergies Allergy Verified 10/27/17 20:18 Review of Systems ROS Statement: Except As Marked, All Systems Reviewed And Found Negative Constitutional: Negative for: Fever, Weakness Musculoskeletal: Positive for: Hand Pain (right, non-radiating) Neurological: Negative for: Weakness, Numbness, Other (tingling) Physical Exam - Reviewed Nursing Documentation Reviewed: Yes Vital Signs Reviewed: Yes - Physical Exam Pulses-Radial (R): 2+ Extremity: Positive for: Normal ROM (of all fingers and wrist of right hand), Capillary Refill (less than 2 seconds), Other (no warmth, erythema, or break in skin integrity; equal investor relations specialist strength bilaterally). Negative for: Tenderness, Deformity, Swelling - ECG O2 Sat by Pulse Oximetry: 96 (RA) Pulse Ox Interpretation: Normal Medical Decision Making Medical Decision Making: Initial Impression: right hand pain Time: 20:48 Initial Plan: --Tylenol 650 --XR Hand Pt. states he has a hx of HTN. Denies headache, chest pain, SOB, visual changes , abdominal pain. Currently not taking any HTN meds. Advised to f/u with PMD for further evaluation of elevated BP. Scribe Attestation: Documented by Samia Luna, acting as a scribe for Mauri Richard PA-C Provider Scribe Attestation: All medical entries made by the Scribe were at my direction and personally dictated by me. I have reviewed the chart and agree that the record accurately reflects my personal performance of the history, physical exam, medical decision making, and the department course for this patient. I have also personally directed, reviewed, and agree with the discharge instructions and disposition. Disposition - Clinical Impression Clinical Impression: Hand pain - Patient ED Disposition Is Patient to be Admitted: No - Disposition Referrals: [facility] [Outside] [facility] [Outside] Disposition: Routine/Home Disposition Time: 21:21 Condition: STABLE Additional Instructions: Follow up with [facility] for further evaluation Return to ED immediately if symptoms worsen Instructions: Hand Pain (DC) Forms: [employer] (Yoruba) Print Language: KYRGYZ
[2017-11-04 21:33] VITALS: BP 171/109; PULSE 84; RESP 18
[2017-11-04 21:34] VITALS: O2SAT 96
--- NOTE | 2017-11-05 08:07 | RAD ---
PROCEDURE: Right Hand Radiographs. HISTORY: pain COMPARISON: None. FINDINGS: BONES: No acute fracture or destructive bony lesion identified. JOINTS: Normal. No osteoarthritic changes. SOFT TISSUES: Normal. OTHER FINDINGS: None. IMPRESSION: Unremarkable right hand radiographs.
== END 2017-11-04 21:31 | disposition home or self-care (01) ==
LOC: H.ER 20:15
DX: M79.641 Pain in right hand (principal); F31.9 Bipolar disorder, unspecified; I10 Essential (primary) hypertension

== ENCOUNTER 2018-01-30 18:01 | Emergency (ER) | payer MEDICAID ==
[2018-01-30 18:01] VITALS: BMI 25.7
[2018-01-30 19:21] VITALS: TEMP 98.4
--- NOTE | 2018-01-30 20:23 | ED PDOC ---
HPI: General Adult Time Seen by Provider: 01/30/18 20:11 Chief Complaint (Nursing): Headache Chief Complaint (Provider): weakness History Per: Patient History/Exam Limitations: no limitations Onset/Duration Of Symptoms: Hrs Current Symptoms Are (Timing): Still Present Additional Complaint(s): 42 y/o male presents for evaluation of genearlized weakness x 3 hours. Patient states he feels "overheated", and like he wants to "fall out". Associated 2/10 headache. Denies fever, dizziness, extremity numbness/weakness, vision changes , nausea/vomiting, chest pain, shortness of breath, palpitations, abdominal pain. Patient nodding out during interview, slow to respond to questions; denies drug/alcohol use. Past Medical History Reviewed: Historical Data, Nursing Documentation, Vital Signs Vital Signs: Last Vital Signs Temp 98.4 F 01/30/18 19:18 Pulse 63 01/31/18 00:58 Resp 16 01/31/18 00:58 BP 137/87 01/31/18 00:58 Pulse Ox 98 01/31/18 00:58 - Medical History PMH: Back Problems, Bipolar Disorder (per old chart but pt denies), HTN ( noncompliant) Denies: Diabetes, Hepatitis, HIV, Chronic Kidney Disease, Seizures, Sexually Transmitted Disease - Surgical History Surgical History: Appendectomy - Family History Family History: States: Unknown Family Hx - Social History Current smoker - smoking cessation education provided: Yes - Immunization History Hx Tetanus Toxoid Vaccination: No Hx Influenza Vaccination: No Hx Pneumococcal Vaccination: No - Home Medications Home Medications: Ambulatory Orders Medication Instructions Recorded amLODIPine [Norvasc] 5 mg PO DAILY #15 tab 01/31/18 - Allergies Allergies/Adverse Reactions: Allergies Allergy/AdvReac Type Severity Reaction Status Date / Time risperidone [From Risperdal] Allergy Mild pt doesn't Verified 01/30/18 19:22 know why but states he is allergic to it Review of Systems ROS Statement: Except As Marked, All Systems Reviewed And Found Negative Constitutional: Positive for: Weakness Neurological: Positive for: Headache Physical Exam - Reviewed Nursing Documentation Reviewed: Yes Vital Signs Reviewed: Yes - Physical Exam Appears: Positive for: Well, Non-toxic, No Acute Distress (poor hygiene) Head Exam: Positive for: ATRAUMATIC, NORMAL INSPECTION, NORMOCEPHALIC Skin: Positive for: Normal Color Eye Exam: Positive for: Normal appearance ENT: Positive for: Normal ENT Inspection Cardiovascular/Chest: Positive for: Regular Rate, Rhythm Respiratory: Positive for: Normal Breath Sounds Gastrointestinal/Abdominal: Positive for: Normal Exam Back: Positive for: Normal Inspection Extremity: Positive for: Normal ROM Neurologic/Psych: Positive for: Alert, Oriented (x3) - Laboratory Results Result Diagrams: 01/30/18 20:50 01/30/18 20:50 - ECG ECG: Positive for: Viewed By Me (reviewed by ED attending) ECG Rhythm: Positive for: Sinus Rhythm O2 Sat by Pulse Oximetry: 99 - Progress ED Course And Treament: labs, urine, CT head, ekg EXAM: CT Head Without Intravenous Contrast CLINICAL HISTORY: 42 years old, male; Pain; Headache; Headache not specified; Additional info: HTN , headache TECHNIQUE: Axial computed tomography images of the head/brain without intravenous contrast. All CT scans at this facility use at least one of these dose optimization techniques: automated exposure control; mA and/or kV adjustment per patient size (includes targeted exams where dose is matched to clinical indication); or iterative reconstruction. Coronal and sagittal reformatted images were created and reviewed. COMPARISON: No relevant prior studies available. FINDINGS: Brain: Unremarkable. Ventricles: Unremarkable. Bones/joints: Unremarkable. No acute fracture. Soft tissues: Unremarkable. Sinuses: Unremarkable as visualized. Mastoid air cells: Unremarkable as visualized. IMPRESSION: No acute intracranial pathology or traumatic injury. BP improved after meds given Patient noted to have lice crawling on him; permethrin ordered and sent for decon Rx Norvasc provided. Advised to stop smoking Follow up with [facility] in 2-3 days Return precautions given Disposition - Clinical Impression Clinical Impression: PCP abuse, Hypertension, Headache, Body lice - Patient ED Disposition Is Patient to be Admitted: No Counseled Patient/Family Regarding: Studies Performed, Diagnosis, Need For Followup, Rx Given - Disposition Referrals: [facility] [Outside] Disposition: Routine/Home Disposition Time: 01:03 Condition: IMPROVED Prescriptions: amLODIPine [Norvasc] 5 mg PO DAILY #15 tab Instructions: High Blood Pressure in Adults, Headache, Adult, Drug Abuse and Drug Addiction (DC), Lice
[2018-01-30 21:01] LABS: BASO # 0.1 K/uL (0.0-0.2); BASO % 2.1 % (0.0-2.0); EOS # 0.4 K/uL (0.0-0.7); EOS % 8.1 % (0.0-4.0); HEMOGLOBIN 10.2 g/dL (12.0-18.0); LYMPH # 1.9 K/uL (1.0-4.3); LYMPH % 41.7 % (20.0-40.0); MEAN CELL VOLUME 71.1 fl (80.0-94.0); MEAN CORPUSCULAR HEMOGLOBIN 22.7 pg (27.0-31.0); MEAN PLATELET VOLUME 7.3 fl (7.2-11.7); MONO # 0.4 K/uL (0.0-0.8); MONO % 9.7 % (0.0-10.0); NEUT # 1.7 K/uL (1.8-7.0); NEUT % 38.4 % (50.0-75.0); RBC 4.48 Mil/uL (4.40-5.90); RED CELL DISTRIBUTION WIDTH 22.8 % (11.5-14.5); WHITE BLOOD COUNT 4.4 K/uL (4.8-10.8)
[2018-01-30 21:03] LABS: URINE BILIRUBIN NEGATIVE (NEGATIVE); URINE BLOOD SMALL (NEGATIVE); URINE CLARITY SLIGHTY-CLOUDY (Clear); URINE COLOR STRAW (YELLOW); URINE GLUCOSE (UA) NEG (Normal); URINE LEUKOCYTE ESTERASE NEG Leu/uL (Negative); URINE PROTEIN NEGATIVE (NEGATIVE)
[2018-01-30 21:22] LABS: BARBITURATES, UR NEGATIVE (NEGATIVE); BENZODIAZEPINES, UR NEGATIVE (NEGATIVE); OPIATES, UR NEGATIVE (NEGATIVE); PHENCYCLIDINE, UR POSITIVE (NEGATIVE)
[2018-01-30 22:01] LABS: BLOOD UREA NITROGEN 15 mg/dl (9-20); GFR AFRICAN-AMERICAN > 60; GFR NON-AFRICAN AMERICAN > 60
[2018-01-30 22:02] LABS: ALBUMIN 4.2 g/dL (3.5-5.0); ALT/SGPT 12 U/L (21-72); AST/SGOT 57 U/L (17-59); CALCIUM 9.2 mg/dL (8.4-10.2)
[2018-01-30 22:50] VITALS: RESP 16
[2018-01-31] MEDS ORDERED: Metoprolol 1 mg/ml Inj IVP STA (00:02)
[2018-01-31] MEDS ORDERED: Permethrin 5% CREAM TOP ONE (00:13)
[2018-01-31 00:33] VITALS: PULSE 63
[2018-01-31 01:00] VITALS: BP 137/87
[2018-01-31 01:06] VITALS: O2SAT 99
--- NOTE | 2018-01-31 07:36 | CARD ---
APPROVED REPORT Date of service: 01/30/2018 <Conclusion> Normal sinus rhythm Moderate voltage criteria for LVH, may be normal variant Junctional ST depression, probably normal Borderline ECG
--- NOTE | 2018-01-31 10:31 | CT ---
Date of service: 01/30/2018 PROCEDURE: CT HEAD WITHOUT CONTRAST. HISTORY: htn, headache COMPARISON: None available. TECHNIQUE: Axial computed tomography images were obtained through the head/brain without intravenous contrast. Radiation dose: Total exam DLP = 2080.22 mGy-cm. This CT exam was performed using one or more of the following dose reduction techniques: Automated exposure control, adjustment of the mA and/or kV according to patient size, and/or use of iterative reconstruction technique. FINDINGS: HEMORRHAGE: No intracranial hemorrhage. BRAIN: No mass effect or edema. No atrophy or chronic microvascular ischemic changes.Incidental finding(s): Focal encephalomalacia region high right parietal region. VENTRICLES: Unremarkable. No hydrocephalus. CALVARIUM: Unremarkable. PARANASAL SINUSES: Unremarkable as visualized. No significant inflammatory changes. MASTOID AIR CELLS: Unremarkable as visualized. No inflammatory changes. OTHER FINDINGS: None. IMPRESSION: No acute intracranial abnormalities. No significant findings to account for the clinical presentation. Concordant results (preliminary interpretation) provided by [employer]. Procedure Completed: 21:48 Preliminary ([employer]Rad) Report: Dictated and Authenticated: 22:03. Final Interpretation: 10:27.
== END 2018-01-31 01:30 | disposition home or self-care (01) ==
LOC: H.ER 18:01
DX: I10 Essential (primary) hypertension (principal); R51 Headache; F16.10 Hallucinogen abuse, uncomplicated; B85.1 Pediculosis due to Pediculus humanus corporis; F17.210 Nicotine dependence, cigarettes, uncomplicated; Z91.19 Patient's noncompliance with other medical treatment and regimen

== ENCOUNTER 2018-02-19 16:10 | Emergency (ER) | payer MEDICAID ==
[2018-02-19 16:11] VITALS: BMI 26.5
[2018-02-19] MEDS ORDERED: Permethrin 5% CREAM TOP ONE (17:17)
--- NOTE | 2018-02-19 18:30 | ED PDOC ---
HPI: General Adult Time Seen by Provider: 02/19/18 16:29 Chief Complaint (Nursing): Medical Clearance Chief Complaint (Provider): General discomfort Current Symptoms Are (Timing): Still Present Additional History Per: Patient Additional Complaint(s): 43yo male, slow to respond but awake, alert and oriented x 3 states he came to the ER because "it was too hot outside." He states his blood pressure is " always high". Provider discussed with patient that he has bedbugs and bodylice to which he responds "yeah, I know." Otherwise, patient denies fever, chills, chest pain, shortness of breath or abdominal pain. Past Medical History Reviewed: Historical Data, Nursing Documentation, Vital Signs Vital Signs: Last Vital Signs Temp Pulse 68 02/19/18 21:13 Resp 17 02/19/18 21:13 BP 147/99 H 02/19/18 21:13 Pulse Ox 100 02/19/18 21:13 - Medical History PMH: Back Problems, Bipolar Disorder (per old chart but pt denies), HTN ( noncompliant) Denies: Diabetes, Hepatitis, HIV, Chronic Kidney Disease, Seizures, Sexually Transmitted Disease - Surgical History Surgical History: Appendectomy - Family History Family History: States: No Known Family Hx - Living Arrangements Living Arrangements: Other (undomiciled) - Immunization History Hx Tetanus Toxoid Vaccination: No Hx Influenza Vaccination: No Hx Pneumococcal Vaccination: No - Home Medications Home Medications: Ambulatory Orders Medication Instructions Recorded amLODIPine [Norvasc] 5 mg PO DAILY #15 tab 01/31/18 Permethrin 5% [Permethrin 5% Cream] 6 applic TOP ONCE 6 Days tube 02/19/18 amLODIPine [Norvasc] 5 mg PO DAILY #30 tab 02/19/18 - Allergies Allergies/Adverse Reactions: Allergies Allergy/AdvReac Type Severity Reaction Status Date / Time risperidone [From Risperdal] Allergy Mild pt doesn't Verified 02/03/18 00:42 know why but states he is allergic to it Review of Systems ROS Statement: Except As Marked, All Systems Reviewed And Found Negative Constitutional: Negative for: Fever, Chills Cardiovascular: Negative for: Chest Pain Respiratory: Negative for: Shortness of Breath Gastrointestinal: Negative for: Abdominal Pain Physical Exam - Reviewed Nursing Documentation Reviewed: Yes Vital Signs Reviewed: Yes - Physical Exam Appears: Positive for: No Acute Distress Head Exam: Positive for: ATRAUMATIC, NORMAL INSPECTION, NORMOCEPHALIC Skin: Positive for: Normal Color Eye Exam: Positive for: Normal appearance Neck: Positive for: Supple Cardiovascular/Chest: Positive for: Regular Rate, Rhythm Respiratory: Positive for: Normal Breath Sounds Gastrointestinal/Abdominal: Positive for: Normal Exam, Soft Back: Positive for: Normal Inspection Extremity: Positive for: Normal ROM, Other (body lice seen on patient; bug bites and excoriations noted to extremities, no signs of cellulitis noted.). Negative for: Pedal Edema, Deformity Neurologic/Psych: Positive for: Alert, Oriented (x 3) - ECG O2 Sat by Pulse Oximetry: 99 (RA) Pulse Ox Interpretation: Normal Medical Decision Making Medical Decision Making: Impression: Chronic uncontrolled hypertension, patient admits to coming as it is "too hot outside" Plan: -- Clonodine 0.1mg PO -- Permethrin cream Patient noted to have applied permethrine cream. Will observe in ER for reaction to Clonodine. 2020 Patient with improved blood pressure and is stable for discharge home. Patient given prescription for Clonidine and discussed regarding importance for follow up within the week. Patient expresses understanding and is agreeable. Scribe Attestation: Documented by Monica Guillory, acting as a scribe for Kimber Schwartz MD. Provider Scribe Attestation: All medical record entries made by the Scribe were at my direction and personally dictated by me. I have reviewed the chart and agree that the record accurately reflects my personal performance of the history, physical exam, medical decision making, and the department course for this patient. I have also personally directed, reviewed, and agree with the discharge instructions and disposition. Disposition - Clinical Impression Clinical Impression: Hypertension, Infestation by bed bug, Body lice - Disposition Referrals: [facility] [Outside] Disposition: Routine/Home Disposition Time: 20:20 Condition: IMPROVED Additional Instructions: Follow up with primary medical doctor in one week. Take medications as prescribed. Apply cream as provided for body lice. Prescriptions: amLODIPine [Norvasc] 5 mg PO DAILY #30 tab Permethrin 5% [Permethrin 5% Cream] 6 applic TOP ONCE 6 Days tube Instructions: Bedbugs, Medicines for High Blood Pressure, Malignant Hypertension (DC), General (DC) Forms: [employer] (Kyrgyz) Print Language: SINHALA
[2018-02-19 20:05] VITALS: PULSE 68; RESP 17
[2018-02-19 20:12] VITALS: BP 147/99
[2018-02-23 09:42] VITALS: O2SAT 99
== END 2018-02-19 21:30 | disposition home or self-care (01) ==
LOC: H.ER 16:10
DX: I10 Essential (primary) hypertension (principal); B85.1 Pediculosis due to Pediculus humanus corporis; F31.9 Bipolar disorder, unspecified

== ENCOUNTER 2018-04-26 20:14 | Emergency (ER) | payer MEDICAID ==
[2018-04-26 20:14] VITALS: BMI 26.5
[2018-04-26 20:20] VITALS: BP 152/98; PULSE 82; RESP 16; TEMP 98.1; O2SAT 98
--- NOTE | 2018-04-26 21:08 | ED PDOC ---
HPI: General Adult Time Seen by Provider: 04/26/18 20:24 Chief Complaint (Nursing): Back Pain Chief Complaint (Provider): Back Pain History Per: Patient History/Exam Limitations: no limitations Onset/Duration Of Symptoms: Other (18x years) Current Symptoms Are (Timing): Still Present Severity: Mild Additional Complaint(s): 43 year old male with a past medical history of chronic back pain presents to the ED with complaints of earwax buildup that he has felt for 18x years. Patient also complains of chronic back pain. PMD: None provided Past Medical History Reviewed: Historical Data, Nursing Documentation, Vital Signs Vital Signs: Last Vital Signs Temp 98.1 F 04/26/18 20:18 Pulse 82 04/26/18 20:18 Resp 16 04/26/18 20:18 BP 152/98 H 04/26/18 20:18 Pulse Ox 98 04/26/18 20:18 - Medical History PMH: Back Problems, Bipolar Disorder (per old chart but pt denies), HTN (noncompliant) Denies: Diabetes, Hepatitis, HIV, Chronic Kidney Disease, Seizures, Sexually Transmitted Disease - Surgical History Surgical History: Appendectomy - Family History Family History: States: Unknown Family Hx - Immunization History Hx Tetanus Toxoid Vaccination: No Hx Influenza Vaccination: No Hx Pneumococcal Vaccination: No - Home Medications Home Medications: Ambulatory Orders Medication Instructions Recorded amLODIPine [Norvasc] 5 mg PO DAILY #15 tab 01/31/18 Permethrin 5% [Permethrin 5% Cream] 6 applic TOP ONCE 6 Days tube 02/19/18 amLODIPine [Norvasc] 5 mg PO DAILY #30 tab 02/19/18 Carbamide Peroxide [Debrox Ear 5 drop .ROUTE BID #1 bottle 04/26/18 Drops] - Allergies Allergies/Adverse Reactions: Allergies Allergy/AdvReac Type Severity Reaction Status Date / Time risperidone [From Risperdal] Allergy Mild pt doesn't Verified 04/26/18 20:18 know why but states he is allergic to it Review of Systems ROS Statement: Except As Marked, All Systems Reviewed And Found Negative ENT: Positive for: Other (earwax buildup) Musculoskeletal: Positive for: Back Pain Physical Exam - Reviewed Nursing Documentation Reviewed: Yes Vital Signs Reviewed: Yes - Physical Exam Appears: Positive for: Well, Non-toxic, No Acute Distress Head Exam: Positive for: ATRAUMATIC, NORMOCEPHALIC Skin: Positive for: Normal Color ENT: Positive for: TM Is/Are (visible section of TMs are normal), Other (Ears: wax buildup bilaterally. ) Cardiovascular/Chest: Positive for: Regular Rate, Rhythm Respiratory: Positive for: Normal Breath Sounds Neurologic/Psych: Positive for: Alert, Oriented (3x) - ECG O2 Sat by Pulse Oximetry: 98 (RA) Pulse Ox Interpretation: Normal Medical Decision Making Medical Decision Makin:24 Initial impression: 43 year old male with earwax buildup Initial plan: Patient requesting motrin for back pain * motrin tab 600 mg PO Scribe Attestation: Documented by Kmiber Zheng, acting as a scribe for Meg Collins PA-C. Provider Scribe Attestation: All medical record entries made by the Scribe were at my direction and personally dictated by me. I have reviewed the chart and agree that the record accurately reflects my personal performance of the history, physical exam, medical decision making, and the department course for this patient. I have also personally directed, reviewed, and agree with the discharge instructions and disposition. Disposition - Clinical Impression Clinical Impression: Chronic back pain, Wax in ear - Patient ED Disposition Is Patient to be Admitted: No Counseled Patient/Family Regarding: Diagnosis, Need For Followup, Rx Given - Disposition Referrals: [facility] [place] [Outside] Disposition: Routine/Home Disposition Time: 21:07 Condition: STABLE Prescriptions: Carbamide Peroxide [Debrox Ear Drops] 5 drop .ROUTE BID #1 bottle Instructions: Ear Wax Impaction Forms: [employer] (Portuguese)
== END 2018-04-26 21:19 | disposition home or self-care (01) ==
LOC: H.ER 20:14
DX: M54.9 Dorsalgia, unspecified (principal); H61.23 Impacted cerumen, bilateral

== ENCOUNTER 2018-05-08 20:05 | Emergency (ER) | payer MEDICAID ==
[2018-05-08 20:05] VITALS: BMI 22.4
[2018-05-08 20:12] VITALS: TEMP 97.8; O2SAT 100
--- NOTE | 2018-05-08 21:25 | ED PDOC ---
HPI: Back Time Seen by Provider: 05/08/18 20:46 Chief Complaint (Nursing): Back Pain Chief Complaint (Provider): back pain History Per: Patient History/Exam Limitations: no limitations Onset/Duration Of Symptoms: Days Current Symptoms Are (Timing): Still Present Exacerbating Factor(s): Turning, Movement Additional Complaint(s): 43 y/o male presents for evaluation of low back pain x 2 days. States pain typical of his chronic back pain, has not been able to take any medication for relief thus far. Denies headache, dizziness, extremity numbness/weakness, chest pain, shortness of breath, palpitations, bowel/bladder incontinence. Past Medical History Reviewed: Historical Data, Nursing Documentation, Vital Signs Vital Signs: Last Vital Signs Temp 97.8 F 05/08/18 20:08 Pulse 84 05/08/18 20:08 Resp 17 05/08/18 20:08 BP 189/116 H 05/08/18 20:08 Pulse Ox 100 05/08/18 20:08 - Medical History PMH: Back Problems, Bipolar Disorder (per old chart but pt denies), HTN (noncompliant) Denies: Diabetes, Hepatitis, HIV, Chronic Kidney Disease, Seizures, Sexually Transmitted Disease - Surgical History Surgical History: Appendectomy - Family History Family History: States: Unknown Family Hx - Immunization History Hx Tetanus Toxoid Vaccination: No Hx Influenza Vaccination: No Hx Pneumococcal Vaccination: No - Home Medications Home Medications: Ambulatory Orders Medication Instructions Recorded amLODIPine [Norvasc] 5 mg PO DAILY #15 tab 01/31/18 Permethrin 5% [Permethrin 5% Cream] 6 applic TOP ONCE 6 Days tube 02/19/18 amLODIPine [Norvasc] 5 mg PO DAILY #30 tab 02/19/18 Carbamide Peroxide [Debrox Ear 5 drop .ROUTE BID #1 bottle 04/26/18 Drops] Naproxen [Naprosyn Tab] 375 mg PO BID PRN #12 tab 05/04/18 - Allergies Allergies/Adverse Reactions: Allergies Allergy/AdvReac Type Severity Reaction Status Date / Time risperidone [From Risperdal] Allergy Mild pt doesn't Verified 04/26/18 20:18 know why but states he is allergic to it Review of Systems ROS Statement: Except As Marked, All Systems Reviewed And Found Negative Musculoskeletal: Positive for: Back Pain Physical Exam - Reviewed Nursing Documentation Reviewed: Yes Vital Signs Reviewed: Yes - Physical Exam Appears: Positive for: Well, Non-toxic, No Acute Distress (sleeping) Head Exam: Positive for: ATRAUMATIC, NORMAL INSPECTION, NORMOCEPHALIC Skin: Positive for: Normal Color Eye Exam: Positive for: Normal appearance ENT: Positive for: Normal ENT Inspection Cardiovascular/Chest: Positive for: Regular Rate, Rhythm Respiratory: Positive for: Normal Breath Sounds Gastrointestinal/Abdominal: Positive for: Normal Exam Back: Positive for: Normal Inspection Extremity: Positive for: Normal ROM Neurologic/Psych: Positive for: Alert, Oriented (x3) - ECG O2 Sat by Pulse Oximetry: 100 - Progress ED Course And Treament: Patient given Ibuprofen with improvement of symptoms Patient requires no further intervention in the ED and is stable for discharge at this time Disposition - Clinical Impression Clinical Impression: Chronic pain - Patient ED Disposition Is Patient to be Admitted: No Counseled Patient/Family Regarding: Diagnosis, Need For Followup - Disposition Disposition: Routine/Home Disposition Time: 22:02 Condition: IMPROVED Instructions: Low Back Pain in Adults
[2018-05-08 22:13] VITALS: BP 144/87; PULSE 81; RESP 18
== END 2018-05-08 22:35 | disposition home or self-care (01) ==
LOC: H.ER 20:05
DX: M54.5 Low back pain (principal); G89.29 Other chronic pain; F31.9 Bipolar disorder, unspecified; I10 Essential (primary) hypertension

== ENCOUNTER 2018-05-20 04:28 | Emergency (ER) | payer MEDICAID ==
[2018-05-20 04:28] VITALS: BMI 22.4
--- NOTE | 2018-05-20 05:41 | ED PDOC ---
HPI: Back Time Seen by Provider: 05/20/18 04:46 Chief Complaint (Nursing): Back Pain Chief Complaint (Provider): Back and leg pain History Per: Patient History/Exam Limitations: no limitations Onset/Duration Of Symptoms: Days Current Symptoms Are (Timing): Still Present Additional Complaint(s): 43 yo male with chronic back pain and HTN presents for evaluation of back pain and leg pain. Pt denies new injury/trauma. Pt states this pain is the same as normal. Pt states he normally takes motrin for pain. Past Medical History Reviewed: Historical Data, Nursing Documentation, Vital Signs Vital Signs: Last Vital Signs Temp 97.5 F L 05/20/18 04:42 Pulse 90 05/20/18 04:42 Resp 18 05/20/18 04:42 BP 156/99 H 05/20/18 04:42 Pulse Ox 99 05/20/18 04:42 - Medical History PMH: Back Problems, Bipolar Disorder (per old chart but pt denies), HTN (noncompliant) Denies: Diabetes, Hepatitis, HIV, Chronic Kidney Disease, Seizures, Sexually Transmitted Disease - Surgical History Surgical History: Appendectomy - Family History Family History: States: Unknown Family Hx - Immunization History Hx Tetanus Toxoid Vaccination: No Hx Influenza Vaccination: No Hx Pneumococcal Vaccination: No - Home Medications Home Medications: Ambulatory Orders Medication Instructions Recorded amLODIPine [Norvasc] 5 mg PO DAILY #15 tab 01/31/18 Permethrin 5% [Permethrin 5% Cream] 6 applic TOP ONCE 6 Days tube 02/19/18 amLODIPine [Norvasc] 5 mg PO DAILY #30 tab 02/19/18 Carbamide Peroxide [Debrox Ear 5 drop .ROUTE BID #1 bottle 04/26/18 Drops] Naproxen [Naprosyn Tab] 375 mg PO BID PRN #12 tab 05/04/18 Labetalol [Trandate] 100 mg PO BID #60 tab 05/18/18 - Allergies Allergies/Adverse Reactions: Allergies Allergy/AdvReac Type Severity Reaction Status Date / Time risperidone [From Risperdal] Allergy Mild pt doesn't Verified 05/18/18 07:29 know why but states he is allergic to it Review of Systems ROS Statement: Except As Marked, All Systems Reviewed And Found Negative Constitutional: Negative for: Fever, Chills Genitourinary Male: Negative for: Dysuria, Frequency, Incontinence Neurological: Negative for: Weakness, Numbness Physical Exam - Reviewed Nursing Documentation Reviewed: Yes Vital Signs Reviewed: Yes - Physical Exam Appears: Positive for: Well, Non-toxic, No Acute Distress Head Exam: Positive for: ATRAUMATIC, NORMAL INSPECTION, NORMOCEPHALIC Skin: Positive for: Normal Color, Warm, DRY Eye Exam: Positive for: Normal appearance ENT: Positive for: Normal ENT Inspection Neck: Positive for: Normal, Painless ROM Cardiovascular/Chest: Positive for: Regular Rate, Rhythm Respiratory: Positive for: CNT, Normal Breath Sounds Gastrointestinal/Abdominal: Positive for: Normal Exam, Soft Back: Positive for: Normal Inspection Extremity: Positive for: Normal ROM Neurologic/Psych: Positive for: Alert, Oriented - ECG O2 Sat by Pulse Oximetry: 99 Medical Decision Making Medical Decision Making: Motrin PO in ER. Disposition - Clinical Impression Clinical Impression: Back pain, chronic - Patient ED Disposition Is Patient to be Admitted: No Counseled Patient/Family Regarding: Diagnosis, Need For Followup - Disposition Disposition: Routine/Home Disposition Time: 05:42 Condition: GOOD Instructions: Low Back Pain in Adults
[2018-05-20] MEDS ORDERED: Lindane 1% Lotion(60 ml) TOP ONE (07:37)
[2018-05-20] MEDS ORDERED: Permethrin 1% Kit 59 ML BOTTLE TOP ONE (09:00)
[2018-05-20 11:15] VITALS: BP 142/70; PULSE 80; RESP 16; TEMP 97.9; O2SAT 100
== END 2018-05-20 10:30 | disposition home or self-care (01) ==
LOC: H.ER 04:28
DX: M54.9 Dorsalgia, unspecified (principal); G89.29 Other chronic pain; Z86.59 Personal history of other mental and behavioral disorders; I10 Essential (primary) hypertension

== ENCOUNTER 2018-07-01 02:46 | Emergency (ER) | payer MEDICAID ==
[2018-07-01 03:02] VITALS: BMI 24.4
[2018-07-01 03:04] VITALS: RESP 16; O2SAT 99
--- NOTE | 2018-07-01 03:21 | ED PDOC ---
HPI: Back Time Seen by Provider: 07/01/18 03:19 Chief Complaint (Nursing): Back Pain Chief Complaint (Provider): back pain History Per: Patient (43 y/o male here with lower back pain requesting underwear in addition to medication for back. Has h/o back pain since 1996. Did not take any meds prior to ED arrival.) Past Medical History Reviewed: Historical Data, Nursing Documentation, Vital Signs Vital Signs: Last Vital Signs Temp 98.0 F 07/01/18 03:03 Pulse 81 07/01/18 03:03 Resp 16 07/01/18 03:03 BP 155/105 H 07/01/18 03:03 Pulse Ox 99 07/01/18 03:03 - Medical History PMH: Back Problems, Bipolar Disorder (per old chart but pt denies), HTN (noncompliant) Denies: Diabetes, Hepatitis, HIV, Chronic Kidney Disease, Seizures, Sexually Transmitted Disease - Surgical History Surgical History: Appendectomy - Family History Family History: States: Unknown Family Hx - Immunization History Hx Tetanus Toxoid Vaccination: No Hx Influenza Vaccination: No Hx Pneumococcal Vaccination: No - Home Medications Home Medications: Ambulatory Orders Medication Instructions Recorded amLODIPine [Norvasc] 5 mg PO DAILY #15 tab 01/31/18 Permethrin 5% [Permethrin 5% Cream] 6 applic TOP ONCE 6 Days tube 02/19/18 amLODIPine [Norvasc] 5 mg PO DAILY #30 tab 02/19/18 Carbamide Peroxide [Debrox Ear 5 drop .ROUTE BID #1 bottle 04/26/18 Drops] Naproxen [Naprosyn Tab] 375 mg PO BID PRN #12 tab 05/04/18 Labetalol [Trandate] 100 mg PO BID #60 tab 05/18/18 - Allergies Allergies/Adverse Reactions: Allergies Allergy/AdvReac Type Severity Reaction Status Date / Time risperidone [From Risperdal] Allergy Mild pt doesn't Verified 07/01/18 03:06 know why but states he is allergic to it Review of Systems ROS Statement: Except As Marked, All Systems Reviewed And Found Negative Physical Exam - Reviewed Nursing Documentation Reviewed: Yes Vital Signs Reviewed: Yes - Physical Exam Appears: Positive for: Well, Non-toxic, No Acute Distress Head Exam: Positive for: ATRAUMATIC, NORMAL INSPECTION, NORMOCEPHALIC Skin: Positive for: Normal Color, Warm, DRY Eye Exam: Positive for: EOMI, Normal appearance, PERRL ENT: Positive for: Normal ENT Inspection Neck: Positive for: Normal, Painless ROM Cardiovascular/Chest: Positive for: Regular Rate, Rhythm Respiratory: Positive for: CNT, Normal Breath Sounds Gastrointestinal/Abdominal: Positive for: Normal Exam, Soft Back: Positive for: Normal Inspection Extremity: Positive for: Normal ROM Neurologic/Psych: Positive for: Alert, Oriented - ECG O2 Sat by Pulse Oximetry: 99 - Progress ED Course And Treament: motrin 400mg Disposition - Clinical Impression Clinical Impression: Back pain - Patient ED Disposition Is Patient to be Admitted: No - Disposition Disposition: Routine/Home Disposition Time: 03:20 Condition: FAIR Instructions: Low Back Pain in Adults
[2018-07-01 03:45] VITALS: BP 148/96; PULSE 78; TEMP 97.6
== END 2018-07-01 03:45 | disposition home or self-care (01) ==
LOC: H.ER 02:46
DX: M54.5 Low back pain (principal); I10 Essential (primary) hypertension; Z86.59 Personal history of other mental and behavioral disorders